=== PATIENT | female | born 1945 | race Caucasian/White ===

== ENCOUNTER 2018-11-04 09:59 | Outpatient (CLI) | payer BC, MEDICARE ==
[2014-12-01 09:32] VITALS: O2SAT 100
== END 2018-11-04 10:00 | disposition home or self-care (01) ==
LOC: CONVCARE 09:59
PROVIDERS: ATTEND Orthopaedic Surgery
DX: Z47.89 Encounter for other orthopedic aftercare (principal); Z98.890 Other specified postprocedural states
CPT/HCPCS: 73562